=== PATIENT | male | born 1965 | race Caucasian/White ===

== ENCOUNTER 2017-11-12 09:26 | Emergency (ER) | payer MEDICARE ==
[~2017-11-12 09:26] MED LIST: ATOR40TA28 PO; ATOR40TA69 PO; CARB200T6 PO; CLOP75TA14 PO; CLOP75TA32 PO; DIAZ10TA4 PO; FOLI1TAB15 PO; IPRA4AER; LAMO100T13 PO; LEVO500T2 PO; METO-409 PO; METO100T14 PO; METR500T PO; MIRT30TA6 PO; MULT1CAP32 PO; PANT40TA25 PO; PRED20TA3 PO; QUET200T PO; QUET200T58 PO; QUET400T PO; TRAM100T34 PO; TRAM50TA4 PO; TRAZ-147 PO; [UNRECOGNIZED DRUG - CODE] PO
[2017-11-12] MEDS ORDERED: METOPROLOL TARTRATE 1 MG/ML 5ML VIAL IV ONE ×3 (09:45→10:47)
[2017-11-12] MEDS ORDERED: NITROGLYCERIN 0.4 MG SL TAB SL ONE (09:45)
[2017-11-12 09:58] LABS: BASOPHILS % (AUTO) 0.5 % (0.0-5.0); EOSINOPHILS % (AUTO) 2.6 % (0.0-8.0); HEMATOCRIT 37.8 % (42-54); LYMPHOCYTES % (AUTO) 32.2 % (21.0-51.0); MEAN CORPUSCULAR HGB CONC 36.2 g/dL (32.0-36.0); MEAN CORPUSCULAR VOLUME 102.4 fL (79-99); MONOCYTES % (AUTO) 11.2 % (3.0-13.0); NEUTROPHILS % (AUTO) 53.5 % (40.0-77.0); NUCLEATED RED BLOOD CELLS 0.1 % (0.0-0.19); PLATELET COUNT (AUTO) 264 K/uL (130-400); RED CELL DISTRIBUTION WIDTH 14.7 % (11.0-15.5); WHITE BLOOD COUNT (AUTO) 7.8 K/uL (4.8-10.8)
[2017-11-12 10:05] LABS: CARBON DIOXIDE 28 mmol/L (21-32); CHLORIDE 104 mmol/L (101-111); CREATININE 0.9 mg/dL (0.5-1.5); GLOMERULAR FILTR. RATE CALC 94 mL/min (>60); GLUCOSE,RANDOM 134 mg/dL (70-105); POTASSIUM 4.7 mmol/L (3.5-5.1); SODIUM SERUM 140 mmol/L (136-145); UREA NITROGEN, BLOOD 6 mg/dL (7-18)
[2017-11-12 10:15] LABS: INR 0.88 (0.85-1.15); PARTIAL THROMBOPLASTIN TIME 26.6 SEC (26.3-35.5); PROTHROMBIN TIME 9.3 SEC (9.6-11.6)
[2017-11-12 10:21] LABS: ALANINE AMINOTRANSFERASE 29 U/L (12-78); ALBUMIN 3.6 g/dL (3.5-5.0); ASPARTATE AMINOTRANSFERASE 26 U/L (10-37); BILIRUBIN,TOTAL 0.2 mg/dL (0.2-1.0); CREATINE KINASE MB < 0.5 ng/mL (0.5-3.6); CREATINE KINASE, TOTAL 70 U/L (21-232); TOTAL PROTEIN, SERUM 7.7 g/dL (6.0-8.3)
== END 2017-11-12 12:17 | disposition left against medical advice (07) ==
LOC: EDH 09:26
DX: I20.0 Unstable angina (principal); I25.2 Old myocardial infarction; E78.5 Hyperlipidemia, unspecified; D72.829 Elevated white blood cell count, unspecified; Z91.041 Radiographic dye allergy status; Z72.0 Tobacco use
CPT/HCPCS: 36415; 71045; 80053; 82550; 82553; 84484; 85025; 85610; 85730; 93005; 96374; 96376; 99291; J3490 ×3

== ENCOUNTER → 2017-11-18 | Outpatient (CLI) | payer MEDICARE ==
[~2017-11-18] VITALS: Ht 172.7 cm; Wt 74.8 kg
[~2017-11-18] MED LIST changes: +REGADENOSON 0.4 MG/5 ML PF SYG IVP SCH
== END | disposition home or self-care (01) ==
LOC: SHCH 09:14
PROVIDERS: ATTEND Internal Medicine Cardiovascular Disease
DX: I25.10 Atherosclerotic heart disease of native coronary artery without angina pectoris (principal); I12.9 Hypertensive chronic kidney disease with stage 1 through stage 4 chronic kidney disease, or unspecified chronic kidney disease; N18.9 Chronic kidney disease, unspecified; E78.5 Hyperlipidemia, unspecified
CPT/HCPCS: 78452; 93017; 96374; A9500 ×2; J2785

== ENCOUNTER 2018-02-22 11:39 | Emergency (ER) | payer MEDICARE ==
[~2018-02-22 11:39] MED LIST changes: -REGADENOSON 0.4 MG/5 ML PF SYG IVP SCH; -TRAZ-147 PO; +TRAZ-187 PO
[2018-02-22] MEDS ORDERED: SODIUM BICARB 8.4% 50ML SYRINGE IVP ONE (12:00)
[2018-02-22] MEDS ORDERED: EPINEPHRINE 0.1 MG/ML 10 ML SYG IVP ONE (12:00)
[2018-02-22] MEDS ORDERED: CALCIUM CHLORIDE 100 MG/ML 10 ML SYG IVP ONE (12:00)
== END 2018-02-22 14:23 | disposition expired ==
LOC: EDH 11:39
DX: I46.9 Cardiac arrest, cause unspecified (principal); I25.10 Atherosclerotic heart disease of native coronary artery without angina pectoris; I10 Essential (primary) hypertension; E78.5 Hyperlipidemia, unspecified; I25.2 Old myocardial infarction; F31.9 Bipolar disorder, unspecified; Z72.0 Tobacco use; Z88.8 Allergy status to other drugs, medicaments and biological substances
CPT/HCPCS: 92950; 94770; 99291; J0171; J3490 ×2